=== PATIENT | female | born 1945 | race Caucasian/White ===

== ENCOUNTER → 2017-01-08 | Day surgery (SDC) | payer OTHER ==
[2016-12-27 10:24] VITALS: Ht 158.8 cm; Wt 88.6 kg
[~2017-01-08] VITALS: Ht 158.8 cm; Wt 88.6 kg
[~2017-01-08] MED LIST: 500ML BSS 0.3ML EPI 1:1000PF IRRIG ONE; ACETAMINOPHEN 325 MG TAB PO PRN; ATROPINE SULFATE 0.1 MG/ML 5ML SYR IV PRN; AcetaZOLAMIDE 250 MG TAB ONE; BETAXOLOL HCL 0.25% OP SUSP PER DROP CHARGE OPR SCH; BIOTCAP2 PO; BRIMONIDINE TART 0.2% OP SOLN PER DROP CHARGE ONE; BSS FLUSH ONE; CALC1CHW95 PO; CINN1CAP2 PO; CYAN100020 PO; DICL-201 PO; ENDOCOAT 0.85ML SYRINGE INT OCU ONE; EpHEDrine SULFATE INJ 50 MG/ML AMP IV PRN; EpINEphrine INJ 1MG/ML AMP 1 MG/ML AMP ONE; FLAX10007 PO; FLUT0.15 NAE; KETO0.024 OPL; LACTATED RINGER'S 1000ML 500 ML IV SCH; LATA0.009 OPL; LIDOCAINE 4% OP SOLN DROP CHARGE ONE; LIDOCAINE 4% OP SOLN DROP CHARGE OPR SCH; LIDOCAINE HCL 1% MPF 2 ML VIAL ONE; MIDAZOLAM HCL 1 MG/ML 2ML VIAL ONE; MIX: 4ML BSS 1ML EPI 1:1000 PF INSTIL ONE; MOXIFLOXACIN OPH SOLN PER DROP CHARGE ONE; MULT-580 PO; MULT-884 PO; OCUCOAT 1 ML SOLN IO ONE; ONDANSETRON INJ 2 MG/ML 2 ML VIAL IV PRN; POVIDONE-IODINE OP SOLN 30 ML BTL ONE; PRED1SUS OPR; PRED1SUS3 OPL; PRLSR20 PO; PROPARACAINE 0.5% OP SOLN PER DROP CHARGE OPR SCH; RANI1TAB77 PO; SENN-56 PO; TOBRAMYCIN/DEXAMETHASONE OPH OINT PER APPLN CHARGE ONE; [UNRECOGNIZED DRUG - CODE] OPL
[2017-01-08] MEDS: PHENYLEPHRINE HCL 2.5% OP SOLN PER DROP CHARGE OPR SCH ×2 (07:22→07:27)
[2017-01-08] MEDS: TROPICAMIDE 1% OP SOLN PER DROP CHARGE OPR SCH ×2 (07:23→07:28)
[2017-01-08] MEDS: CYCLOPENTOLATE HCL 1% OP SOLN PER DROP CHARGE OPR SCH ×2 (07:24→07:29)
[2017-01-08] MEDS: MOXIFLOXACIN OPH SOLN PER DROP CHARGE OPR SCH ×2 (07:24→07:36)
--- NOTE | 2017-01-08 07:28 | History & Physical Bridge - [place] ---
H&P Re-Evaluation Bridge Note: I have examined the patient, reviewed the History & Physical and in the interval since the performance of the History & Physical I have noted the following changes of clinical significance: No changes noted
--- NOTE | 2017-01-08 08:07 | Discharge Instructions-SurgCtr ---
Discharge Instructions Date of Service Jan 08, 2017. Visit Reason for Visit: Cataract Right Eye Discharge Discharge Diagnosis / Problem: lens implant right eye Discharge Goals Goal(s): Improve function Activity Recommendations Activity Limitations: resume your previous activity Lifting Limitations: no more than 10 pounds Exercise/Sports Limitations: gradually increase as tolerated May Resume Sexual Activity: when tolerated Shower/Bathe: tomorrow Driving or Machine Use: resume 1 day after discharge Anesthesia . Post Anesthesia Instructions: If you have had General Anesthesia or IV Sedation: * Do not drive today. * Resume driving when surgeon permits. * Do not make important decisions or sign legal documents today. * Call surgeon for: 1. Temperature elevations greater than 101 degrees F. 2. Uncontrollable pain. 3. Excessive bleeding. 4. Persistent nausea and vomiting. 5. Medication intolerance (nausea, vomiting or rash). * For nausea and vomiting use only clear liquids such as: tea, soda, bouillon until nausea subsides, then gradually increase diet as tolerated. * If you have any concerns or questions, call your surgeon's office. If physician is unavailable and it is an emergency, call 911 or go to the nearest emergency room. . Instructions / Follow-Up Instructions / Follow-Up ACTIVITY RECOMMENDATIONS: * Light activities. * Mild irritation and blurred vision are common for the first few days. * You may walk outside, read, watch television. * Redness around the white part of the eye is common. MEDICATIONS: Resume previous medications unless instructed otherwise by your surgeon. * Take white Diamox (Acetazolamide) tablet at 1 pm today. Start all eye drops at 1 pm today: * Eye drops (today and tomorrow): Prednisone - one drop in operative eye every 3 hours while awake Ofloxacin - one drop in operative eye every 3 hours while awake Continue Glaucoma drops in left eye as directed - Latanoprost Left Eye every evening. SPECIAL CARE INSTRUCTIONS: * Tape plastic shield over eye to sleep at night. Call your doctor at with any concerns or problems. FOLLOW UP VISIT: Follow-up with Dr Khan at [place] office as scheduled. Diet Recommendations Home Diet: no limitations Procedures Procedures Performed: cataract extraction with lens implant Pending Studies Studies pending at discharge: no Medical Emergencies . Who to Call and When: Medical Emergencies: If at any time you feel your situation is an emergency, please call 911 immediately. . Non-Emergent Contact Non-Emergency issues call your: Six Sigma Project Manager Call Non-Emergent contact if: your pain is not controlled [phone] . . "Provider Documentation" section prepared by Immanuel Khan.
[2017-01-08 08:11] VITALS: TEMP 36.5
--- NOTE | 2017-01-08 08:11 | [facility] Operative Report ---
Operative Report Date of Service Jan 08, 2017. Operative Report 1. PREOPERATIVE DIAGNOSIS: Senile nuclear cataract, right eye. 2. POSTOPERATIVE DIAGNOSIS: Senile nuclear cataract, right eye. 3. PROCEDURE: Phacoemulsification of right cataract with posterior chamber lens implant, type Bausch [employer] Lomb, model Toric [id number], power +9.50 diopters. ANESTHESIA: Local standby. SURGEON: Dr. Khan. COMPLICATIONS: None. OPERATING TIME: 10 minutes. 4. OPERATION AND FINDINGS: DESCRIPTION OF PROCEDURE: The right pupil was dilated. The anesthetic was administered using a topical technique. The right eye was prepped and draped. A speculum was placed. A clear corneal incision was formed. The chamber was filled with Amvisc Plus and Endocoat. Epinephrine solution was used. A paracentesis was placed. A capsulorrhexis was performed. The nucleus was hydrodissected. The lens was removed with phacoemulsification. Time was 3.43 seconds. The aspiration unit was used to remove the cortex. The capsule was filled with Amvisc Plus. The lens implant was folded and placed into the capsule. The lens was rotated to the appropriate position. The incision was hydrated. The Amvisc was aspirated. The wound was secure. The chamber was deep. The pupil was round. Brimonidine, TobraDex ointment and Vigamox solution were placed. The speculum was removed. The patient was returned to the Recovery Room in stable condition. I attest to the content of the Intraoperative Record and any orders documented therein. Any exceptions are noted below. The scribe's documentation has been prepared in my presence, under my direction and personally reviewed by me in its entirety. I confirm that the note above accurately reflects all work, treatment, procedures, and medical decision making performed by me. I personally scribed for Immanuel Khan M.D. (ROYA) on 01/08/17 at 08:11. Electronically submitted by Angela WALKER).
--- NOTE | 2017-01-08 08:20 | Anesthesia Progress Nt - [facility] ---
Anesthesia Post Op Note Date & Time Jan 08, 2017 at 08:19 Vital Signs Vital Signs Past 12 Hours Date Time Temp Pulse Resp B/P Pulse Ox O2 Delivery O2 Flow Rate FiO2 01/08/17 08:11 36.5 72 16 135/74 99 Room Air 01/08/17 07:15 36.7 71 16 159/89 99 Room Air Notes Mental Status: alert / awake / arousable, participated in evaluation Pt Amnestic to Procedure: Yes Nausea / Vomiting: adequately controlled Pain: adequately controlled Airway Patency, RR, SpO2: stable & adequate BP & HR: stable & adequate Hydration State: stable & adequate Anesthetic Complications: no major complications apparent
[2017-01-08 08:33] VITALS: BP 130/76; PULSE 68; O2SAT 99
== END | disposition home or self-care (01) ==
LOC: X.SURG 07:03
PROVIDERS: ATTEND Specialist
DX: H25.11 Age-related nuclear cataract, right eye (principal)

== ENCOUNTER → 2017-01-22 | Day surgery (SDC) | payer OTHER ==
[2017-01-20 09:49] VITALS: Ht 158.8 cm; Wt 88.6 kg
[~2017-01-22] VITALS: Ht 158.8 cm; Wt 88.6 kg
[~2017-01-22] MED LIST changes: +AMVISC PLUS 0.8ML SYRINGE INT OCU ONE; -AcetaZOLAMIDE 250 MG TAB ONE; +AcetaZOLAMIDE 250 MG TAB PO SCH; +BETAXOLOL HCL 0.25% OP SUSP PER DROP CHARGE OPL SCH; -BETAXOLOL HCL 0.25% OP SUSP PER DROP CHARGE OPR SCH; +LIDOCAINE 4% OP SOLN DROP CHARGE OPL SCH; -LIDOCAINE 4% OP SOLN DROP CHARGE OPR SCH; -ONDANSETRON INJ 2 MG/ML 2 ML VIAL IV PRN; +PROPARACAINE 0.5% OP SOLN PER DROP CHARGE OPL SCH; -PROPARACAINE 0.5% OP SOLN PER DROP CHARGE OPR SCH; -RANI1TAB77 PO
[2017-01-22] MEDS: PHENYLEPHRINE HCL 2.5% OP SOLN PER DROP CHARGE OPL SCH ×2 (09:16→09:21)
[2017-01-22] MEDS: TROPICAMIDE 1% OP SOLN PER DROP CHARGE OPL SCH ×2 (09:17→09:22)
[2017-01-22] MEDS: CYCLOPENTOLATE HCL 1% OP SOLN PER DROP CHARGE OPL SCH ×2 (09:18→09:23)
[2017-01-22] MEDS: MOXIFLOXACIN OPH SOLN PER DROP CHARGE OPL SCH ×2 (09:19→09:29)
--- NOTE | 2017-01-22 10:03 | Discharge Instructions-SurgCtr ---
Discharge Instructions Date of Service Jan 22, 2017. Visit Reason for Visit: Cataract Left Eye Discharge Discharge Diagnosis / Problem: lens implant left eye Discharge Goals Goal(s): Improve function Activity Recommendations Activity Limitations: resume your previous activity Lifting Limitations: no more than 10 pounds Exercise/Sports Limitations: gradually increase as tolerated May Resume Sexual Activity: when tolerated Shower/Bathe: tomorrow Driving or Machine Use: resume 1 day after discharge Anesthesia . Post Anesthesia Instructions: If you have had General Anesthesia or IV Sedation: * Do not drive today. * Resume driving when surgeon permits. * Do not make important decisions or sign legal documents today. * Call surgeon for: 1. Temperature elevations greater than 101 degrees F. 2. Uncontrollable pain. 3. Excessive bleeding. 4. Persistent nausea and vomiting. 5. Medication intolerance (nausea, vomiting or rash). * For nausea and vomiting use only clear liquids such as: tea, soda, bouillon until nausea subsides, then gradually increase diet as tolerated. * If you have any concerns or questions, call your surgeon's office. If physician is unavailable and it is an emergency, call 911 or go to the nearest emergency room. . Instructions / Follow-Up Instructions / Follow-Up ACTIVITY RECOMMENDATIONS: * Light activities. * Mild irritation and blurred vision are common for the first few days. * You may walk outside, read, watch television. * Redness around the white part of the eye is common. MEDICATIONS: Resume previous medications unless instructed otherwise by your surgeon. * Take white Diamox (Acetazolamide) tablet at 1 pm today. Start all eye drops at 1 pm today: * Eye drops (today and tomorrow): Prednisone - one drop in operative eye every 3 hours while awake Ofloxacin - one drop in operative eye every 3 hours while awake Continue Glaucoma drops - Latanoprost Right Eye at bedtime. SPECIAL CARE INSTRUCTIONS: * Tape plastic shield over eye to sleep at night. Call your doctor at with any concerns or problems. FOLLOW UP VISIT: Follow-up with Dr Khan at [place] office as scheduled. Diet Recommendations Home Diet: no limitations Procedures Procedures Performed: cataract extraction with lens implant Pending Studies Studies pending at discharge: no Medical Emergencies . Who to Call and When: Medical Emergencies: If at any time you feel your situation is an emergency, please call 911 immediately. . Non-Emergent Contact Non-Emergency issues call your: Electric Meter Installer Call Non-Emergent contact if: your pain is not controlled [phone] . . "Provider Documentation" section prepared by Immanuel hKan.
--- NOTE | 2017-01-22 10:05 | [facility] Operative Report ---
Operative Report Date of Service Jan 22, 2017. Operative Report 1. PREOPERATIVE DIAGNOSIS: Senile nuclear cataract, left eye. 2. POSTOPERATIVE DIAGNOSIS: Senile nuclear cataract, left eye. 3. PROCEDURE: Phacoemulsification of left cataract with posterior chamber lens implant, type Haseeb, model SN6AT4, power +9.50 diopters. ANESTHESIA: Local standby. SURGEON: Dr. Khan. COMPLICATIONS: None. OPERATING TIME: 10 minutes. 4. OPERATION AND FINDINGS: DESCRIPTION OF PROCEDURE: The left pupil was dilated. The anesthetic was administered using a topical technique. The left eye was prepped and draped. A speculum was placed. A clear corneal incision was formed. The chamber was filled with Amvisc Plus and Endocoat. Epinephrine solution was used. A paracentesis was placed. A capsulorrhexis was performed. The nucleus was hydrodissected. The lens was removed with phacoemulsification. Time was 3.89 seconds. The aspiration unit was used to remove the cortex. The capsule was filled with Amvisc Plus. The lens implant was folded and placed into the capsule. The incision was hydrated. The Amvisc was aspirated. The wound was secure. The chamber was deep. The pupil was round. Brimonidine, TobraDex ointment and Vigamox solution were placed. The speculum was removed. The patient was returned to the Recovery Room in stable condition. I attest to the content of the Intraoperative Record and any orders documented therein. Any exceptions are noted below. The scribe's documentation has been prepared in my presence, under my direction and personally reviewed by me in its entirety. I confirm that the note above accurately reflects all work, treatment, procedures, and medical decision making performed by me. I personally scribed for Immanuel Khan M.D. (ROYA) on 01/22/17 at 10:05. Electronically submitted by Angela Ramirez ([email or web address]).
[2017-01-22 10:07] VITALS: TEMP 36.4
--- NOTE | 2017-01-22 10:21 | Anesthesia Progress Nt - [facility] ---
Anesthesia Post Op Note Date & Time Jan 22, 2017 at 10:22 Vital Signs Pain Intensity: 0 Vital Signs Past 12 Hours Date Time Temp Pulse Resp B/P Pulse Ox O2 Delivery O2 Flow Rate FiO2 01/22/17 10:07 36.4 70 16 132/66 99 Room Air 01/22/17 09:08 36.4 77 16 147/79 99 Room Air Notes Mental Status: alert / awake / arousable, participated in evaluation Pt Amnestic to Procedure: Yes Nausea / Vomiting: adequately controlled Pain: adequately controlled Airway Patency, RR, SpO2: stable & adequate BP & HR: stable & adequate Hydration State: stable & adequate Anesthetic Complications: no major complications apparent
[2017-01-22 10:27] VITALS: BP 135/68; PULSE 67; O2SAT 99
== END | disposition home or self-care (01) ==
LOC: X.SURG 08:46
PROVIDERS: ATTEND Specialist
DX: H25.12 Age-related nuclear cataract, left eye (principal); Z98.41 Cataract extraction status, right eye; M19.90 Unspecified osteoarthritis, unspecified site; K21.9 Gastro-esophageal reflux disease without esophagitis; Z98.51 Tubal ligation status; Z96.659 Presence of unspecified artificial knee joint

== ENCOUNTER 2023-01-20 06:12 | Observation (INO) ==
--- NOTE | 2022-12-23 13:17 | PAT Medication Instructions ---
Medication Instructions Date of Service December 23, 2022 Home Medications Medication Instructions Recorded Ryanne Villanueva #1 ea 11/14/22 alendronate 70 mg tablet 70 mg PO WK calcium citrate 315 mg calcium-vitamin D3 6.25 mcg (250 unit) tablet (Citracal + Vitamin D Maximum) 1 tab PO QAM cholecalciferol (vitamin D3) 10 mcg (400 unit) capsule 10 mcg PO QAM collagen,hydrolysate 500 mg-biotin 800 mcg-ascorbic acid 50 mg capsule (Collagen 1500 Plus C) 1 cap PO QAM docusate sodium 100 mg capsule (Dulcolax Stool Softener (docusate)) 100 mg PO DAILY PRN Constipation fluticasone propionate 50 mcg/actuation nasal spray,suspension 1 spray intranas al QAM latanoprost 0.005 % eye drops 1 drp ophthalmic (eye) QPM levothyroxine 25 mcg capsule 25 mcg PO QAM magnesium 200 mg tablet 200 mg PO BID multivitamin with iron (Daily Multiple Vitamins with Iron tablet) 1 tab PO QAM naproxen sodium 220 mg capsule (Aleve) 220 mg PO BID PRN Pain sertraline 50 mg tablet (Zoloft) 50 mg PO QPM timolol 0.25 % eye drops 1 drp ophthalmic (eye) QAM tumeric 100 mg-alina 150 mg-olive 50 mg-oreg 150 mg-caprylate capsule 1 cap PO BID vitamin K2 45 mcg capsule 45 mcg PO QPM Fish Oil 1 dose PO QPM Heal And Soothe 3 tab PO BID psyllium husk 0.4 gram capsule (Metamucil) 0.4 g PO QAM sennosides 8.6 mg tablet (Senna Lax) 8.6 mg PO HS Continue as directed alendronate 70 mg tablet 70 mg PO WK ASK your surgeon for instructions naproxen sodium 220 mg capsule (Aleve) 220 mg PO BID PRN Pain STOP taking 2 weeks before surgery (or as soon as possible if surgery is within 2 weeks) collagen,hydrolysate 500 mg-biotin 800 mcg-ascorbic acid 50 mg capsule (Collagen 1500 Plus C) 1 cap PO QAM tumeric 100 mg-alina 150 mg-olive 50 mg-oreg 150 mg-caprylate capsule 1 cap PO BID vitamin K2 45 mcg capsule 45 mcg PO QPM Fish Oil 1 dose PO QPM Heal And Soothe 3 tab PO BID DO NOT take the morning of surgery calcium citrate 315 mg calcium-vitamin D3 6.25 mcg (250 unit) tablet (Citracal + Vitamin D Maximum) 1 tab PO QAM cholecalciferol (vitamin D3) 10 mcg (400 unit) capsule 10 mcg PO QAM docusate sodium 100 mg capsule (Dulcolax Stool Softener (docusate)) 100 mg PO DAILY PRN Constipation magnesium 200 mg tablet 200 mg PO BID multivitamin with iron (Daily Multiple Vitamins with Iron tablet) 1 tab PO QAM psyllium husk 0.4 gram capsule (Metamucil) 0.4 g PO QAM Take morning of surgery With a small sip of water, OTHERWISE NOTHING TO EAT OR DRINK AFTER MIDNIGHT: fluticasone propionate 50 mcg/actuation nasal spray,suspension 1 spray intranasal QAM levothyroxine 25 mcg capsule 25 mcg PO QAM timolol 0.25 % eye drops 1 drp ophthalmic (eye) QAM Take evening before surgery docusate sodium 100 mg capsule (Dulcolax Stool Softener (docusate)) 100 mg PO DAILY PRN Constipation (if needed) latanoprost 0.005 % eye drops 1 drp ophthalmic (eye) QPM magnesium 200 mg tablet 200 mg PO BID sertraline 50 mg tablet (Zoloft) 50 mg PO QPM tumeric 100 mg-alina 150 mg-olive 50 mg-oreg 150 mg-caprylate capsule 1 cap PO BID sennosides 8.6 mg tablet (Senna Lax) 8.6 mg PO HS Other Notes If you have any questions please call us at [phone] or [phone] or [phone] or [phone]
--- NOTE | 2022-12-25 10:31 | Anesthesiology Consultation ---
Date of Service December 25, 2022 Assessment & Plan (1) Encounter for pre-operative examination: - COVID screening: Per assessment on 12/25: No known COVID-19 positive contacts or current COVID-19 related symptoms. Travel screen negative. Patient was Covid pos itive 10/07/22 (home test)- headache, cough, chills, body aches > symptoms resolved except residual dry cough (> 90 days prior to DOS). At surgeon discretion if preop Covid testing being done. - S/P Right TKA (11/21/15): SAB at L3/4 (x1 attempt) + PNB at [facility] - Outpatient joint assessment: Pt currently scheduled for inpatient pathway. If surgeon requests review for outpatient joint pathway, patient is not recommended candidate for outpatient joint program from anesthesia standpoint. Chart Review Chart Review: Acceptable Risk for Surgery and Patient seen in Pre Admission Testing Teaching & Discussion Pre-Anesthesia Teaching/Discussion Notes: Instructed NPO after midnight before surgery,except medications with 15 cc of water. Medication instructions provided according to the PAT guidelines. History Surgery Operation Date: 01/20/23 07:00 Proposed Procedures p Left Total Knee Arthroplasty - Claude Choudhury MD Height/Weight Height: 5 ft 2.5 in Weight: 95.7 kg Allergies Allergy/AdvReac Type Severity Reaction Status Date / Time No Known Drug Allergies Allergy Unknown NKDA Verified 12/23/22 11:27 pollen extracts Allergy Unknown HAY FEVER Verified 12/23/22 11:27 Medications Home Medications Medication Instructions Recorded Confirmed Last Taken alendronate 70 mg tablet 70 mg PO WK 05/03/22 12/23/22 Unknown calcium citrate 315 mg 1 tab PO QAM 05/03/22 12/23/22 Unknown calcium-vitamin D3 6.25 mcg (250 unit) tablet (Citracal + Vitamin D Maximum) cholecalciferol (vitamin D3) 10 10 mcg PO QAM 05/03/22 12/23/22 Unknown mcg (400 unit) capsule collagen,hydrolysate 500 mg-biotin 1 cap PO QAM 05/03/22 12/23/22 Unknown 800 mcg-ascorbic acid 50 mg capsule (Collagen 1500 Plus C) docusate sodium 100 mg capsule 100 mg PO DAILY PRN Constipation 05/03/22 12/23/22 Unknown (Dulcolax Stool Softener (docusate)) fluticasone propionate 50 1 spray intranasal QAM 05/03/22 12/23/22 Unknown mcg/actuation nasal spray,suspension latanoprost 0.005 % eye drops 1 drp ophthalmic (eye) QPM 05/03/22 12/23/22 Unknown levothyroxine 25 mcg capsule 25 mcg PO QAM 05/03/22 12/23/22 Unknown magnesium 200 mg tablet 200 mg PO BID 05/03/22 12/23/22 Unknown multivitamin with iron (Daily 1 tab PO QAM 05/03/22 12/23/22 Unknown Multiple Vitamins with Iron tablet) naproxen sodium 220 mg capsule 220 mg PO BID PRN Pain 05/03/22 12/23/22 Unknown (Aleve) sertraline 50 mg tablet (Zoloft) 50 mg PO QPM 05/03/22 12/23/22 Unknown timolol 0.25 % eye drops 1 drp ophthalmic (eye) QAM 05/03/22 12/23/22 Unknown tumeric 100 mg-alina 150 mg-olive 1 cap PO BID 05/03/22 12/23/22 Unknown 50 mg-oreg 150 mg-caprylate capsule vitamin K2 45 mcg capsule 45 mcg PO QPM 05/03/22 12/23/22 Unknown Wheeled Walker #1 ea 11/14/22 11/14/22 Unknown Fish Oil 1 dose PO QPM 12/23/22 12/23/22 Unknown Heal And Soothe 3 tab PO BID 12/23/22 12/23/22 Unknown psyllium husk 0.4 gram capsule 0.4 g PO QAM 12/23/22 12/23/22 Unknown (Metamucil) sennosides 8.6 mg tablet (Senna 8.6 mg PO HS 12/23/22 12/23/22 Unknown Lax) Past Medical History Medical History Borderline hyperlipidemia DDD (degenerative disc disease) GERD (gastroesophageal reflux disease) Glaucoma History of COVID-19 10/07/22 (home test)- headache, cough, chills, body aches > symptoms resolved except residual cough History of depression Hypothyroidism Obesity Osteoarthritis Spinal stenosis Exercise / Class Metabolic Activity III < 4 Walking/Shop/Light housework (one FS (no CP, + SOB)) Past Family History Family History Father Slow to wake up after anesthesia Past Surgical History Surgical History History of cataract surgery History of colonoscopy History of D&C History of tonsillectomy History of tubal ligation History of wisdom tooth extraction Status post right knee replacement Right TKA (11/21/15): SAB at L3/4 (x1 attempt) + PNB at [facility] Past Anesthesia History No Hx of Anesthesia Complications Father- unknown surgical issues with multiple "shots in arms"- no specific anesthesia complications/issues known. No similar issues for patient. History of PONV No Hx of PONV and Hx of Motion Sickness (Occasional) Social History Smoking Status: Never smoker Do You Dip or Chew Tobacco: No Hx Alcohol Use: No Hx Substance Use: No substance use type: does not use Review of Systems Patient denies chest pain, shortness of breath, fever, chills, cough, wheezing, palpitations. Physical Exam Vital Signs VITALS BP 161/76 P 74 TEMP SP02 98%RA RESP 16 PHYSICAL Full cervical extension range of motion. Full TMJ range of motion. TMD 3 finger breaths Mallampati Score ___ Dentition: intact, upper front caps Lungs: clear throughout to auscultation Cardiac: regular rate and rhythm, no murmurs noted Spine: normal Carotid arteries: negative bruit Extremities: no edema Lab Results Anesthesia Preop Results Results Anesthesia Widget: WBC 5.57 K/ul (4.8-10.8) 12/25/22 Hgb 12.3 g/dl (12.0-16.0) 12/25/22 Hct 36.0 % (37.0-47.0) L 12/25/22 Plt 270 K/uL (130-400) 12/25/22 Na 137 mmol/L (136-145) 12/25/22 K 4.5 mmol/L (3.5-5.1) 12/25/22 Cl 104 mmol/L (98-107) 12/25/22 CO2 29 mmol/L (21-32) 12/25/22 BUN 24 mg/dl (6-23) H 12/25/22 Creat 0.72 mg/dl (0.6-1.2) 12/25/22 Glucose Level 91 mg/dl (70-99(Fasting)) 12/25/22 PT 10.2 Seconds (9.0-12.0) 12/25/22 PTT 24.6 Seconds (21.0-31.0) 12/25/22 INR 1.0 (0.9-1.1) 12/25/22 Blood Type A Negative 12/25/22 Antibody Screen NEGATIVE 12/25/22 Testing Laboratory Results 12/06/22 TSH 1.88 Electrocardiogram Date: 12/25/22 NSR at 74bpm. PRWP, consider anterior NM vs lead placement vs LVH. No significant change compared to 10/24/15 per compressor mechanic comparison. Chest X-Ray Date: 12/25/22 Findings: + NAD Stress Test Date: 11/19/19 Type: exercise Stress echo was negative for inducible ischemia. 93% MPHR. 4 METS. Low workload achieved reduces the sensitivity of this test for detection of coronary artery disease or ischemia. Could consider pharmacological stress test if clinically indicated. Rest echo: LVEF 65%. Borderline increased concentric LV wall thickness. Nondilated cardiac chambers. No significant valvular disease.
--- NOTE | 2023-01-17 14:33 | History and Physical Report ---
DATE OF NOTE: 01/20/2023 CHIEF COMPLAINT: Persistent progressive left knee pain, discomfort and deformity. HISTORY OF PRESENT ILLNESS: The patient is a 77-year-old female who now presents for surgical treatm ent of her left knee. She has got a long history of knee problems and had her right knee replaced by myself 7 years or so ago. She has done well from this side. Over the years, she has developed incr eased pain and discomfort and deformity in her left knee. We have been injecting her knee intermitte ntly, which has become less successful over time. Last shot did not help at all. Pain has become mo re debilitating. She limps all day long and more as the day goes on. She would like to have her kne e fixed. PAST MEDICAL HISTORY: 1. Hypothyroidism. 2. Low back pain/sciatica. 3. Gastroesophageal reflux disease. 4. Obesity with a BMI of 38. PAST SURGICAL HISTORY: 1. Right knee replacement done on 11/21/2015. 2. Cataract surgery. 3. Tubal ligation. ALLERGIES: None. CURRENT MEDICATIONS: Include: 1. Alendronate. 2. Calcium citrate. 3. Vitamin D3. 4. Collagen. 5. Docusate sodium. 6. Fluticasone. 7. Latanoprost eye drops. 8. Zoloft. 9. Aleve. 10. Multivitamin. 11. Magnesium. 12. Levothyroxine. 13. Timolol eye drops. 14. Turmeric. 15. Vitamin K2. SOCIAL HISTORY: A 77-year-old female. She is . Lives with her . Does not smoke or d rink. FAMILY HISTORY: Noncontributory. REVIEW OF SYSTEMS: Negative for diabetes. Denies any neurologic problem, vascular problems or bleed ing disorders. No chest pain or shortness of breath. No history of DVT or PE. PHYSICAL EXAMINATION: GENERAL: Healthy, pleasant, middle-aged female, looks to be in pretty good health. HEENT: Benign. NECK: Supple. No lymphadenopathy. LUNGS: Clear to auscultation. HEART: Regular rate and rhythm. ABDOMEN: Soft, nontender, nondistended. EXTREMITIES: Grossly neurovascularly intact except as follows. Examination of the left knee reveals the patient walks with a slightly antalgic gait. She had valgus deformity to her knee, which is increased with weightbearing. She has got moderate soft tissue enve anabella. Range of motion 5-120. No instability. Examination of her right knee reveals a well-healed incision. She had anatomic alignment to her knee . Range of motion is 0 to 120. X-RAYS: X-rays of the left knee were reviewed. It shows advanced left knee DJD. She has complete l oss of her lateral joint space. She has got diffuse subchondral sclerosis. She has got osteophytes primarily laterally. Diffuse osteopenia. The right knee replacement looks to be in good position wi thout problems. ASSESSMENT: A 77-year-old white female, now about 9 months out from a right knee replacement with ad vanced left knee degenerative joint disease. This has progressed despite conservative care. She wou ld now like to have her left knee replaced. PLAN: We will take her to the operating room and do left total knee replacement. The risks and bene fits of this procedure were explained to the patient and include but not limited to DVT, PE, , i nfection, neurological injury, vascular injury, bleeding problem, pain, limited range of motion, stif fness, failure to relieve her symptoms, incomplete relief of symptoms, need for further surgery in th e future, etc. The patient understands and desires to proceed. Informed consent was obtained. As far as discharge plans, she is planning to be discharged to home using [facility] pro[facility]. Her will assist in her care. She will use aspirin twice a day for DVT prophylaxis. Job ID: [id number]
[~2023-01-20 06:12] MED LIST changes: -500ML BSS 0.3ML EPI 1:1000PF IRRIG ONE; -ACETAMINOPHEN 325 MG TAB PO PRN; +ACETAMINOPHEN 500 MG TAB PO SCH; -AMVISC PLUS 0.8ML SYRINGE INT OCU ONE; -ATROPINE SULFATE 0.1 MG/ML 5ML SYR IV PRN; -AcetaZOLAMIDE 250 MG TAB PO SCH; -BETAXOLOL HCL 0.25% OP SUSP PER DROP CHARGE OPL SCH; -BIOTCAP2 PO; -BRIMONIDINE TART 0.2% OP SOLN PER DROP CHARGE ONE; -BSS FLUSH ONE; +BUPIVACAINE LIPOSOME/PF 266 MG, BUPIVACAINE/EPINEPHRINE 50 ML, SODIUM CHLORIDE 0.9% PF ... INFIL SCH; -CALC1CHW95 PO; -CINN1CAP2 PO; -CYAN100020 PO; +CeleBREX 200 MG CAP PO SCH; -DICL-201 PO; -ENDOCOAT 0.85ML SYRINGE INT OCU ONE; -EpHEDrine SULFATE INJ 50 MG/ML AMP IV PRN; -EpINEphrine INJ 1MG/ML AMP 1 MG/ML AMP ONE; +FAMOTIDINE 20 MG TAB PO SCH; -FLAX10007 PO; -FLUT0.15 NAE; -KETO0.024 OPL; -LACTATED RINGER'S 1000ML 500 ML IV SCH; -LATA0.009 OPL; -LIDOCAINE 4% OP SOLN DROP CHARGE ONE; -LIDOCAINE 4% OP SOLN DROP CHARGE OPL SCH; -LIDOCAINE HCL 1% MPF 2 ML VIAL ONE; +LR 500ML BOLUS, THEN 15ML/HR IV SCH; +LR 60ML/HR IV SCH; +METOCLOPRAMIDE HCL 10 MG TABLET PO SCH; -MIDAZOLAM HCL 1 MG/ML 2ML VIAL ONE; -MIX: 4ML BSS 1ML EPI 1:1000 PF INSTIL ONE; -MOXIFLOXACIN OPH SOLN PER DROP CHARGE ONE; -MULT-580 PO; -MULT-884 PO; -OCUCOAT 1 ML SOLN IO ONE; -POVIDONE-IODINE OP SOLN 30 ML BTL ONE; -PRED1SUS OPR; -PRED1SUS3 OPL; -PRLSR20 PO; -PROPARACAINE 0.5% OP SOLN PER DROP CHARGE OPL SCH; -SENN-56 PO; -TOBRAMYCIN/DEXAMETHASONE OPH OINT PER APPLN CHARGE ONE; +TRANEXAMIC ACID 1,000 MG **IV Intra-op IV SCH; -[UNRECOGNIZED DRUG - CODE] OPL; +ceFAZolin 2000MG 2,000 MG/15 ML SYR IV SCH
[2023-01-20] MEDS ORDERED: BUPIVACAINE 0.5 % 5 MG/1 ML PF 10ML VIAL ONE (06:32)
[2023-01-20] MEDS ORDERED: EPINEPHrine INJ 1 MG/ML AMP ONE (06:32)
[2023-01-20] MEDS ORDERED: ROPIVACAINE 0.5% 5 MG/ML 30 ML VIAL ONE (06:32)
--- NOTE | 2023-01-20 06:51 | History & Physical Bridge Note ---
Date of Service January 20, 2023 History & Physical Bridge Note I have examined the patient, reviewed the History & Physical and in the interval since the performance of the History & Physical I have noted the following changes of clinical significance: no changes noted
[2023-01-20] MEDS ORDERED: MIDAZOLAM HCL 1 MG/ML 2ML VIAL ONE (07:24)
[2023-01-20] MEDS ORDERED: fentaNYL citrate PF 100 MCG/2 ML VIAL ONE (07:24)
[2023-01-20] MEDS ORDERED: BUPIVACAINE/EPINEPHRINE 0.25% 1:200,000 30 ML VIAL ONE (08:58)
[2023-01-20] MEDS ORDERED: BUPIVACAINE LIPOSOME 1.3% 266 MG/20 ML VIAL ONE (08:58)
[2023-01-20] MEDS ORDERED: SODIUM CHLORIDE 0.9% PF 50 ML VIAL ONE (08:58)
[2023-01-20] MEDS ORDERED: KETOROLAC 30 MG/ML VIAL ONE (09:23)
[2023-01-20] MEDS ORDERED: DEXAMETHASONE SOD INJ 4 MG/ML VIAL ONE (09:23)
[2023-01-20] MEDS ORDERED: PROPOFOL IV EMULSION 10 MG/ML 20 ML VIAL IV ONE (09:23)
[2023-01-20] MEDS ORDERED: ATROPINE SULFATE 0.1 MG/ML 10ML SYR IV PRN (09:57)
[2023-01-20] MEDS ORDERED: ePHEDrine sulfate 50 MG/ML AMP IV PRN (09:57)
--- NOTE | 2023-01-20 11:07 | Operative Report ---
PG Post Operative Report Pre & Post Diagnosis Operation Date: 01/20/23 08:50 Pre-Op Diagnosis: Degenerative joint disease, Left Knee Post-Op Diagnosis: Degenerative joint disease, Left Knee I identified the patient and participated in the time-out.: Yes Procedure Operation Date: 01/20/23 08:50 Actual Procedures p Left Total Knee Arthroplasty(Left) - Claude Choudhury MD Surgeon Claude Choudhury MD Assistant Site Manager Dandy Rodriguez PA-C Estimated Blood Loss 50 Findings Consistent with Post-Op Diagnosis Operative findings real advanced left knee DJD with extensive grade 4 [id number] disease of the lateral compartment with a fixed valgus deformity to her knee. Moderate soft tissue envelope. Moderate knee joint effusion. Specimens Left knee sent for pathology Drains None Anesthesia Type Spinal MAC Complications none Disposition Accompanied Patient To Recovery: No Indications Patient 77-year-old female said a long history of knee problems and arthritis. She been through extensive conservative treatment over the years. She did have a right knee replaced about 7 years ago and is done well from this. She can to be limited by left knee pain discomfort. She been through extensive conservative treatment over the years which became less successful. She has now elected proceed with total knee arthroplasty. Description of Procedure Operative implants consist of: 1 Biomet Vanguard size 60 left posterior stabilized femoral component. 2. Biomet size 67 tibial tray. 3. 12 mm posterior stabilized polyethylene insert. 4. 28 x 8 all Paller patella. The patient was taken the operating, identified, placed on the operating table supine position protectors were properly padded. IV antibiotics tried by anay ro team. A spinal anesthetic and abductor canal block had been provided in the holding area. Ulrich catheter was placed in sterile fashion. Left factor was then placed in left lower extremity then prepped and draped in usual sterile fashion. The left leg was elevated and exsanguinated with use of an Esmarch and the tourniquet was placed at 300 mmHg. An anterior approach the left knee was then performed to longitudinal incision centered over the patella. Sharp dissection was carried through subcutaneous tissue down the extensor mechanism. A medial parapatellar arthrotomy incision was made. Some subperiosteal dissection was carried out medially. The fat pad was dissected from Neath patella tendon. Lateral patellofemoral ligament was released. Patella subluxated laterally and the knee was flexed. The osteophytes taken off distal femur. The ACL and PCL were then released from distal femur the tibia subluxated anteriorly. The external tibial alignment jig was then placed in the interface the tibia and adjusted 12 mm medially. Proximal tibial cut was made remove about a millimeter bone from the medial side. The tibia sized to a size 67. Attention drawn the femur. The distal femur was then with a sharp drop with intramedullary canal was suction. A left 5 degree valgus cutting guide was placed. This femoral cutting block was pinned in place. The distal femoral cut was made doing take an additional 5 mm of bone off distal femur. The femoral cut was made. The knee was brought out in extension. I did release some of the IT band in order to equalize extension gap. Great care was taken to protect the peroneal nerve at all times. The knee was then flexed. The femur was sized to a size 60. The AP cutting block was pinned parallel to the epicondylar axis which was 6 degrees of external rotation. The anterior cut, anterior chamfer, posterior cut, posterior chamfer cuts were made. The box cutting guide was placed in just slight lateral and the box cut was made. The knee was flexed. The remnants of the medial and lateral menisci were excised. I did release the popliteus in order to equalize the flexion gap. The knee was then trialed and the 12 mm insert fit most appropriately. Attention drawn the patella. The patella was cleaned of all soft tissues. Patella thickness measured 22 mm in thickness was cut down to 13. Was sized to a size 28 patella. The lug holes were drilled for the 28 patella. The lateral osteophyte was removed. Patella button was placed. Knee was taken through range of motion patella tracked nicely with no thumbs test. Attention drawn to placing permanent components. All trial components were removed. Bone plug was placed in the distal femur limit blood loss. Double batch Palacos G cement was mixed. Biomet Vanguard size 60 left posterior stabilized femoral component, size 67 tibial tray, a 12 mm posterior stabilized polyethylene insert, and a 28 x 8 all Paller patella then cemented in place. Knee was brought into full extension till cement hardened. Final cement check was then performed. Pericapsular tissues were injected with total of 100 cc of combination of 20 cc of Exparel, 30 cc normal saline, 50 cc of quarter percent Marcaine with epinephrine. Patient did receive 1 g tranexamic acid. The tourniquet was then let down for final tourniquet time 57 minutes. Hemostasis assured with electrocautery. Extensor mechanism then closed with combination 1 PDS suture and #1 Vicryl suture in [id number] fashion. Extensor mechanism checked found to be intact the subcutaneous tissues then closed with 2 Dexon suture in a buried interrupted fashion skin was closed skin leila. Leg was then cleaned and dried and sterile dressing with Xeroform, 4 x 4's, sterile cast padding, Madi bandage were applied. Patient then transferred to the recovery in stable condition. Patient tolerated procedure well and there were no complications. Dandy Rodriguez, my physician document control assistant, was present for the entire procedure. His assistance was essential and required for appropriate patient positioning, prepping and draping, surgical exposure, performing the technical details of the operation, placement the implants, closure of the wound, and placement of the sterile bandage. I attest to the content of the Intraoperative Record and any orders documented therein. Any exceptions are noted below.
--- NOTE | 2023-01-20 11:35 | XRay Report ---
LEFT KNEE 2 VIEWS History: Left total knee arthroplasty. Degenerative arthritis. Postop. FINDINGS: The patient is status post a left total knee arthroplasty. The hardware is intact. No fract ure or dislocation. Skin leila are in place. IMPRESSION: Left total knee arthroplasty. No evidence for hardware complication. ACT 112: Negative or not required by law. Electronically signed by: Constantino Turcios M.D. 01/20/2023 11:34 AM
--- NOTE | 2023-01-20 12:09 | Anesthesiology Progress Note ---
Date of Service January 20, 2023 Anesthesia Post Procedure Vital Signs Vital Signs: Temp Pulse Pulse Resp BP BP Pulse Ox 01/20/23 12:05 36.3 C L 68 20 137/76 98 01/20/23 11:55 65 20 141/64 H 98 01/20/23 11:45 61 20 149/77 H 99 01/20/23 11:35 60 18 153/71 H 98 01/20/23 11:25 62 20 144/62 H 100 01/20/23 11:15 67 18 135/62 100 01/20/23 11:07 36.3 C L 72 14 128/71 97 01/20/23 06:40 36.9 C 75 20 177/79 H 97 O2 Del Method O2 Flow Rate 01/20/23 12:05 Room Air 01/20/23 11:55 Room Air 01/20/23 11:45 Room Air 01/20/23 11:35 Room Air 01/20/23 11:25 Room Air 01/20/23 11:15 Oxymask 6 01/20/23 11:07 Oxymask 9 01/20/23 06:40 Room Air Pain Intensity Left Knee: Pain Intensity: 7 Transfer of Care Handoff Completed per policy Notes Mental Status: alert / awake / arousable Patient Amnestic to Procedure: Yes Nausea / Vomiting: adequately controlled Pain: adequately controlled Airway Patency, RR, SpO2: stable & adequate BP & HR: stable & adequate Hydration State: stable & adequate Neuraxial Anesthesia: was administered and sensory block is resolving Anesthetic Complications: no major complications apparent
[2023-01-20] MEDS ORDERED: NALOXONE HCL 0.4 MG/1 ML VIAL/CARP IV PRN (12:39)
[2023-01-20] MEDS ORDERED: MAGNESIUM HYDROXIDE SUSP 30 ML UDC PO PRN (12:39)
[2023-01-20] MEDS ORDERED: bisacodyL 10 MG SUPP PR PRN (12:39)
[2023-01-20] MEDS ORDERED: HYDROmorphone INJ 0.5 MG/0.5 ML SYR IV PRN (12:39)
[2023-01-20] MEDS ORDERED: ONDANSETRON INJ 2 MG/ML 2 ML VIAL IV PRN (12:39)
[2023-01-20] MEDS ORDERED: ALUMINUM/MAGNESIUM SUSP 30 ML UDC PO PRN (12:39)
[2023-01-20] MEDS ORDERED: METOCLOPRAMIDE HCL INJ 5 MG/ML 2 ML VIAL IV PRN (12:39)
[2023-01-20] MEDS ORDERED: DOCUSATE SODIUM 100 MG CAP PO PRN (12:39)
[2023-01-20] MEDS: KETOROLAC TROMETHAMINE 15 MG/ML VIAL IV SCH ×2 (13:47→19:36)
[2023-01-20] MEDS: SODIUM CHLORIDE 0.9% 1000ML 1,000 ML IV SCH ×2 (13:47→23:58)
[2023-01-20] MEDS: ACETAMINOPHEN 500 MG TAB PO SCH ×2 (13:48→21:38)
--- NOTE | 2023-01-20 14:06 | Progress Notes ---
DATE OF SERVICE: 01/20/2023. SUBJECTIVE: A 77-year-old female, postoperative from a left knee replacement. She is doing pretty w ell. Really not had much pain yet. No chest pain or shortness of breath. Not feeling dizzy or ligh theaded. OBJECTIVE: VITAL SIGNS: Temperature is 36.5. Vital signs are stable. GENERAL: Shows a pleasant middle-aged female. She is sitting up in bed and looks quite comfortable. LUNGS: Clear to auscultation. HEART: Regular rate and rhythm. ABDOMEN: Soft, nontender, nondistended. EXTREMITIES: Grossly neurovascularly intact except as follows. Examination of the left leg reveals the dressing to be clean, dry and intact. Leg is well aligned. She can dorsiflex and plantarflex her foot appropriately. She is neurologically intact. X-RAYS: X-rays of the left knee from recovery room were reviewed. It shows a left cemented posterio r stabilized total knee arthroplasty. Components looked to be in good position. No signs of problem s. ASSESSMENT: A 77-year-old female, postoperative from a left knee replacement, doing well. Pain is c ontrolled. She is neurologically intact. PLAN: 1. DVT prophylaxis includes thigh-high TEDs, SCDs, and aspirin twice a day. 2. PT/OT, weightbear as tolerated. Left total knee protocol. 3. Pain control, doing okay with current pain regimen. 4. IV antibiotics x24 hours. 5. Disposition: Plan to discharge to home with some home health once adequately recovered and medic ally stable. Job ID: [id number]
[2023-01-20] MEDS ORDERED: TRANEXAMIC ACID / 0.7% NACL 1,000 MG/100 ML BAG IV SCH (17:15)
[2023-01-20] MEDS: ASCORBIC ACID 500 MG TAB PO SCH (17:40)
[2023-01-20] MEDS: ceFAZolin 2000MG 2,000 MG/15 ML SYR IV SCH (17:43)
[2023-01-20] MEDS: oxyCODONE HCL IR 5 MG TAB (IMMEDIATE RELEASE) PO PRN ×2 (17:43→23:56)
[2023-01-20] MEDS: ASPIRIN 81 MG ECTAB PO SCH (19:37)
[2023-01-20] MEDS: FEXOFENADINE 60 MG TAB PO SCH (19:38)
[2023-01-20] MEDS: DOCUSATE SODIUM 100 MG CAP PO SCH (19:38)
[2023-01-20] MEDS: MAGNESIUM OXIDE 400 MG TAB PO SCH (19:40)
[2023-01-20] MEDS ORDERED: LATANOPROST 0.005% OP SOLN 2.5 ML BTL OP SCH (21:00)
[2023-01-20] MEDS ORDERED: SENNA 8.6 MG TAB PO SCH (21:00)
[2023-01-20] MEDS ORDERED: OMEGA-3 (PURIFIED FISH OIL) 1 GM CAP PO SCH (21:00)
[2023-01-20] MEDS ORDERED: VITAMIN K2 PO SCH (21:00)
[2023-01-20] MEDS ORDERED: [UNRECOGNIZED DRUG - OTHER] PO SCH (21:00)
[2023-01-20] MEDS ORDERED: SERTRALINE HCL 50 MG TABLET PO SCH (21:00)
[2023-01-21] MEDS: KETOROLAC TROMETHAMINE 15 MG/ML VIAL IV SCH ×3 (01:22→13:34)
[2023-01-21] MEDS: ceFAZolin 2000MG 2,000 MG/15 ML SYR IV SCH (01:22)
[2023-01-21 06:07] LABS: Hematocrit (blood only) 29.2 % (37.0-47.0); Mean Corpuscular Hemoglobin 31.7 pg (25.0-34.0); Mean Corpuscular Hgb Conc 34.2 g/dL (32.0-36.0); Mean Corpuscular Volume 92.7 fL (80.0-100.0); Mean Platelet Volume 9.5 fL (9.4-12.4); Platelet Count 207 K/uL (130-400); RDW Coefficient of Variation 13.3 % (11.5-14.5); RDW Standard Deviation 44.9 fL (36.4-46.3); Red Blood Count 3.15 M/uL (4.20-5.40); White Blood Count 8.33 K/ul (4.8-10.8)
[2023-01-21] MEDS: ACETAMINOPHEN 500 MG TAB PO SCH ×2 (06:08→13:34)
[2023-01-21] MEDS ORDERED: LEVOTHYROXINE SODIUM 25 MCG TABLET PO SCH (06:30)
[2023-01-21 06:36] LABS: BUN Creatinine Ratio 33.8 (10-20); Calcium 8.1 mg/dl (8.6-10.3); Creatinine Clr Calc Pharmacy 74.5 ml/min; Est GFR (African American) 96.6 ml/min; Est GFR (Non-African American) 83.3 ml/min
[2023-01-21] MEDS: ASCORBIC ACID 500 MG TAB PO SCH (08:22)
[2023-01-21] MEDS: MAGNESIUM OXIDE 400 MG TAB PO SCH (08:22)
[2023-01-21] MEDS: DOCUSATE SODIUM 100 MG CAP PO SCH (08:23)
[2023-01-21] MEDS: FEXOFENADINE 60 MG TAB PO SCH (08:23)
[2023-01-21] MEDS: ASPIRIN 81 MG ECTAB PO SCH (08:23)
[2023-01-21] MEDS ORDERED: MULTIVITAMIN TAB PO SCH (09:00)
[2023-01-21] MEDS ORDERED: DOCUSATE SODIUM/SENNA 50/8.6MG TAB PO SCH (09:00)
[2023-01-21] MEDS ORDERED: CHOLECALCIFEROL 400 UNITS 10 MCG TAB PO SCH (09:00)
[2023-01-21] MEDS ORDERED: PSYLLIUM or GUAR GUM FIBER POWDER PACKET PO SCH (09:00)
[2023-01-21] MEDS ORDERED: CALCIUM 600MG + VIT D 400 IU TAB PO SCH (09:00)
[2023-01-21] MEDS ORDERED: MULTIVITAMIN WITH IRON PO SCH (09:00)
[2023-01-21] MEDS ORDERED: TIMOLOL MALEATE 0.25% OP SOLN 5 ML BTL OP SCH (09:00)
[2023-01-21] MEDS ORDERED: FLUTICASONE PROPIONATE NA SPR 16 GM BTL NAE SCH (09:00)
[2023-01-21] MEDS: oxyCODONE HCL IR 5 MG TAB (IMMEDIATE RELEASE) PO PRN (09:46)
[2023-01-21] MEDS ORDERED: dexAMETHasone 10 MG in SYRINGE 0 ML IV SCH (10:00)
--- NOTE | 2023-01-21 14:51 | Progress Notes ---
DATE OF SERVICE: 01/21/2023 SUBJECTIVE: A 77-year-old white female postop day 1 from a left knee replacement. She is doing pret ty well. Having some pain, but manageable. No chest pain or shortness of breath. Not feeling dizzy or lightheaded. OBJECTIVE: VITAL SIGNS: Temperature is 36.3. Vital signs are stable. PHYSICAL EXAMINATION: GENERAL: Physical examination shows a pleasant middle-aged female. She is sitting up in her bedside chair eating lunch and looks pretty comfortable. EXTREMITIES: Examination of the left leg reveals the dressing to be clean, dry, and intact. She can dorsiflex and plantarflex her foot appropriately. She is neurologically intact. LABORATORY DATA: Hemoglobin 10.0. Hematocrit 29.2. Electrolytes are stable. ASSESSMENT: A 77-year-old white female postop day 1 from left knee replacement, doing pretty well. Pain is controlled. She is neurologically intact. PLAN: 1. DVT prophylaxis to include thigh-high TEDs, SCDs, and aspirin twice a day. 2. PT, OT, and weightbear as tolerated. Left total knee protocol. 3. Pain control, doing okay with current pain regimen. 4. Disposition: Plan to discharge her home with some home health later today. Job ID: [id number]
--- NOTE | 2023-01-22 12:37 | Discharge Summary ---
Date of Service January 22, 2023 Discharge Data Procedures Performed Operation Date: 01/20/23 08:50 Actual Procedures p Left Total Knee Arthroplasty(Left) - Claude Choudhury MD Hospital Course (1) Status post total left knee replacement: This is a 77 year old patient admitted on 01/20/23 and underwent total knee arthroplasty. She tolerated the procedure well and there were no complications. Transferred to the PACU post op and later to the orthopedic floor for further care. She was given ancef for antibiotic prophylaxis. She was also given BILL stockings, SCDs, and aspirin for DVT prophylaxis. Hemoglobin, hematocrit, and vital signs were monitored during her hospital stay and remained stable. Did not require any blood transfusions. There were no complications during her hospital stay. By post op day #1 the patient was tolerating a regular diet, pain was reasonably controlled with oral pain medicine, and she was participating in physical therapy. On post op day #1 the patient was discharged home and set up with home health care. She was given printed discharge instructions including prescriptions for extra strength tylenol, aspirin, ketorolac, zofran, senokot, and oxycodone. Continue physical therapy, weight bearing as tolerated. Continue BILL stockings. Follow up approximately 2 weeks post op or sooner if there are problems or concerns. Coding Level of Care Code None Diagnoses Status post total left knee replacement Z96.652
== END 2023-01-21 14:49 | disposition home health service (06) ==
LOC: 3E 06:12 → ASU 06:12